=== PATIENT | female | born 1960 | race Caucasian/White ===

== ENCOUNTER 2023-02-25 09:30 | Outpatient (CLI) | payer BC | END 2023-02-25 09:31 | disposition home or self-care (01) | LOC: SCSRAD 09:30 | PROVIDERS: ATTEND Nurse Practitioner Family | DX: S69.92XA Unspecified injury of left wrist, hand and finger(s), initial encounter (principal); S59.202A Unspecified physeal fracture of lower end of radius, left arm, initial encounter for closed fracture ==